=== PATIENT | male | born 1930 | race Caucasian/White ===

== ENCOUNTER 2020-11-15 11:33 | Emergency (ER) | payer MEDICARE, OTHER ==
[~2020-11-15] VITALS: Ht 177.8 cm; Wt 97.5 kg
[~2020-11-15 11:33] MED LIST: ALLEGRA ALLERGY60 MG PO; ALLOPURINOL 30300 M2 PO; AMIODARONE HCL100 MG PO; CARDIZEM CD180 MG PO; CARDIZEM CD240 MG PO; FLECAINIDE ACET50 M1 PO; FLOMAX0.4 MG PO; FUROSEMIDE 40 M40 M1 PO; K-DUR 20 MEQ T20 MEQ PO; KLOR-CON 1010 MEQ PO; LOPRESSOR50 PO; OMEPRAZOLE20 M2 PO; PACERONE 200 M200 M1 PO; PROSCAR 5MG TABL5 MG PO; TOPROL XL25 MG PO; VITAMIN D1000 UNI1 PO; XARELTO20 MG PO
[2020-11-15] MEDS ORDERED: NORVASC5 MG PO (11:52)
[2020-11-15] MEDS ORDERED: TOPROL XL50 MG PO (11:52)
[2020-11-15 12:06] LABS: URINE BILIRUBIN NEGATIVE (Negative); URINE BLOOD NEGATIVE (Negative); URINE CLARITY CLEAR; URINE COLOR YELLOW; URINE GLUCOSE-RANDOM NEGATIVE (Negative); URINE KETONES NEGATIVE (Negative); URINE LEUKOCYTES-REFLEX NEGATIVE (Negative); URINE NITRITE-REFLEX NEGATIVE (Negative); URINE PROTEIN NEGATIVE (Negative); URINE UROBILINOGEN 0.2 E.U./dl (0.2-1.0)
[2020-11-15 12:20] LABS: ABSOLUTE BASOPHILS 0.1 thou/uL (0.0-0.2); ABSOLUTE EOSINOPHILS 0.3 thou/uL (0.0-0.7); ABSOLUTE LYMPHOCYTES 2.5 thou/uL (0.8-5.3); ABSOLUTE MONOCYTES 0.7 thou/uL (0.0-1.2); ABSOLUTE NEUTROPHILS 2.7 thou/uL (1.6-8.1); EOSINOPHILS 4.5 %; HEMATOCRIT 39.3 % (42.0-52.0); HEMOGLOBIN 13.1 gm/dL (14.0-18.0); LYMPHOCYTES 39.7 %; MCH 32.6 pg (26.0-34.0); MCHC 33.4 g/dL (28.0-37.0); MCV 97.5 fL (80.0-100.0); MONOCYTES 11.4 %; MPV 7.9 fl. (7.2-11.1); NUCLEATED RBCS 0 /100WBC; PLATELET COUNT* 165 thou/uL (150-400); POLYS 43.4 %; RBC 4.03 mil/uL (4.50-6.00); RDW-CV 16.7 % (10.5-14.5); WBC 6.2 thou/uL (4.0-11.0)
[2020-11-15 12:31] LABS: CALCIUM 8.3 mg/dL (8.5-10.1); CREATININE 1.3 mg/dL (0.6-1.3); POTASSIUM 3.6 mmol/L (3.5-5.1)
[2020-11-15 12:32] LABS: APTT 31.8 Seconds (25.0-31.3); INR 1.2; PROTIME 12.8 Seconds (9.20-11.50)
[2020-11-15 12:42] LABS: ALBUMIN 3.6 g/dL (3.4-5.0); TOTAL BILIRUBIN 0.6 mg/dL (<0.1-1.0); TOTAL PROTEIN 7.3 g/dL (6.4-8.2)
--- NOTE | 2020-11-15 14:24 | EKG ---
[place] [address] ELECTROCARDIOGRAM REPORT Name: CRENSHAWPETE Room: [facility]#: [id number] Admission: 11/15/20 Attend Phys: Discharge: Date of : [birth year] Date of Service: 11/15/20 1142 Report #: [id number] THIS REPORT FOR: //name// [facility] ED Test Date: 2020-11-15 Test Time: 11:42:21 Pat Name: PETE CRENSHAW Department: Room: Gender: Residential Support Specialist: [facility] : 1930 Requested By: Luis Robbins Order Number: [id number] MD: Michi Thibodeaux Measurements Intervals [place] Rate: 94 P: IN: QRS: -74 QRSD: 188 T: -15 QT: 445 QTc: 557 Interpretive Statements Atrial fibrillation Multiple ventricular premature complexes RBBB and LAFB Compared to ECG 01/25/2016 07:34:36 Ventricular premature complex(es) now present Sinus rhythm no longer present Electronically Signed On 11-15-2020 14:23:49 CDT by Michi Thibodeaux [email or web address] <ELECTRONICALLY SIGNED> By: Michi Thibodeuax MD, [facility] 11/15/20 1423 1142 1142 Michi Thibodeaux MD, [facility] /EPI
[2020-11-15 16:30] VITALS: BP 124/85
== END 2020-11-15 16:32 | disposition home or self-care (01) ==
LOC: M.ERS 11:33
PROVIDERS: Emergency Medicine
DX: R53.1 Weakness (principal); R42 Dizziness and giddiness; I10 Essential (primary) hypertension; I48.91 Unspecified atrial fibrillation; Z98.890 Other specified postprocedural states; Z88.0 Allergy status to penicillin; Z88.2 Allergy status to sulfonamides; Z91.048 Other nonmedicinal substance allergy status